=== PATIENT | male | born 1990 | race Caucasian/White ===

== ENCOUNTER 2017-11-21 20:56 | Emergency (ER) | payer SELFPAY ==
[2017-11-21 21:23] VITALS: BP 120/69; PULSE 57; RESP 16; TEMP 97.9
[2017-11-21] MEDS ORDERED: PROPARACAINE 0.5% OPHTH DROPS 15 ML BTL RIGHT EYE STA (22:08)
[2017-11-21] MEDS ORDERED: PROPARACAINE 0.5% OPHTH DROPS 15 ML BTL ONE (22:30)
[2017-11-21] MEDS ORDERED: PROPARACAINE 0.5% OPHTH DROPS 15 ML BTL LEFT EYE STA (22:32)
--- NOTE | 2017-11-21 23:03 | ED ---
Eye Problem HPI - General Chief complaint: Eye Problems Stated complaint: Eye Problem Time Seen by Provider: 11/21/17 21:58 Source: patient Mode of arrival: ambulatory Limitations: no limitations - History of Present Illness Initial comments: 27-year-old male no past medical history who presents today for chief complaint of foreign body in left eye 3 days. 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 When he felt a piece of metal go into his left eye. Patient stated that he attempted to rinse his eye, and continue to work. The next 2 days he noticed left eye irritation and watering, as well as some redness. Patient attempted to use a eye irrigation system at his work to irrigate the eye, as well as home irrigation over the course the 2 days. When he still had a foreign body sensation in the left eye today, he decided to present to the emergency department. Patient visual changes, double vision, purulent drainage , fever, chills, flashes or floaters, headache, nausea or vomiting. Pt is non- CL user. Remainder ROS (-) - Related Data Previous Rx's Medication Instructions Recorded Erythromycin Ophth Oint [Romycin 1 applic LEFT EYE QID 3 Days #1 11/21/17 Ophth Oint] tube Allergies Allergy/AdvReac Type Severity Reaction Status Date / Time No Known Allergies Allergy Verified 11/21/17 21:23 Review of Systems ROS Statement: Those systems with pertinent positive or pertinent negative responses have been documented in the HPI. ROS Other: All systems not noted in ROS Statement are negative. Constitutional: Denies: fever, chills Eyes: Reports: as per HPI, eye pain. Denies: eye discharge, vision change Respiratory: Denies: cough Cardiovascular: Denies: chest pain, palpitations Gastrointestinal: Denies: abdominal pain, nausea, vomiting, diarrhea, constipation Genitourinary: Denies: urgency, dysuria, frequency, hematuria Skin: Denies: rash, lesions Neurological: Denies: headache, weakness, numbness, paresthesias, confusion Past Medical History Past Medical History: No Reported History History of Any Multi-Drug Resistant Organisms: None Reported Past Surgical History: No Surgical Hx Reported Past Psychological History: No Psychological Hx Reported Smoking Status: Never smoker Past Alcohol Use History: Daily Past Drug Use History: None Reported General Exam - General Exam Comments Initial Comments: General: The patient is awake and alert, in no distress, and does not appear acutely ill. Eye: VA 20/20 OD, OS, OU. No surrounding erythema, abrasions or lesions of the eyelids or surrounding soft tissue the eyes bilaterally. +3 Pupils are equal , round and reactive to light, extra-ocular movements are intact.-no APD No nystagmus. No conjugate gaze. Mild conjunctival injection of the left eye. No foreign body upon upper and lower lid examination. Slit-lamp exam revealed no evidence of foreign body. Fluorescein examination revealed uptake superficially in the cornea at the 6 o'clock position inferior to the pupil. Negative Kenneth sign. No other areas of uptake. There is normal conjunctiva of the right eye. Visual boudreaux intact to confrontation bilaterally. No signs of icterus. IOP OD 9, OS 12 Ears, nose, mouth and throat: There are moist mucous membranes and no oral lesions. Cardiovascular: There is a regular rate and rhythm. No murmur, rub or gallop is appreciated. Respiratory: Lungs are clear to auscultation, respirations are non-labored, breath sounds are equal. No wheezes, stridor, rales, or rhonchi. Neurological: A&O x 3. CN II-XII intact, There are no obvious motor or sensory deficits. Coordination appears grossly intact. Speech is normal. Skin: Skin is warm and dry and no rashes or lesions are noted. Psychiatric: Cooperative, appropriate mood & affect, normal judgment. Limitations: no limitations Course Vital Signs 11/21/17 21:19 Temperature 97.9 F Pulse Rate 57 L Respiratory 16 Rate Blood Pressure 120/69 O2 Sat by Pulse 98 Oximetry Medical Decision Making - Medical Decision Making 27 or male no past medical history with chief complaint of left eye irritation. Fluorescein exam revealed uptake at the 6 o'clock position concerning for corneal abrasion, no evidence of foreign body. Negative Kenneth sign, remainder of ocular exam unremarkable. Case discussed with Dr. Connolly. At this time we feel patient is stable to for discharge with opthamology follow-up in 24 hours and antibiotic ointment. Patient is discharged in stable condition. Disposition Clinical Impression: Corneal abrasion, left Disposition: HOME SELF-CARE Condition: Good Instructions: Corneal Abrasion (ED) Additional Instructions: Please use medication as discussed. Please follow-up with ophthalmology in the next 24 hours. Please return to emergency room if the symptoms increase or worsen or for any other concerns. Prescriptions: Erythromycin Ophth Oint [Romycin Ophth Oint] 1 applic LEFT EYE QID 3 Days #1 tube Is patient prescribed a controlled substance at d/c from ED?: No Referrals: None,Stated [Primary Care Provider] - 1-2 days Roshan Chaudhari MD [STAFF PHYSICIAN] - 1-2 days Time of Disposition: 23:03
== END 2017-11-21 23:07 | disposition home or self-care (01) ==
LOC: EC 20:56
DX: S05.02XA Injury of conjunctiva and corneal abrasion without foreign body, left eye, initial encounter (principal); Z53.8 Procedure and treatment not carried out for other reasons; X58.XXXA Exposure to other specified factors, initial encounter
CPT/HCPCS: 99283